=== PATIENT | female | born 1945 | race Caucasian/White ===

== ENCOUNTER 2018-02-04 03:43 | Emergency (ER) | payer SELFPAY ==
[~2018-02-04] VITALS: Ht 157.5 cm; Wt 90.0 kg
[2018-02-04] MEDS ORDERED: ACETAMINOPHEN 325MG TABLET PO STA (05:08)
[2018-02-04] MEDS ORDERED: KETOROLAC 60MG/2ML VIAL IM STA (05:08)
[2018-02-04] MEDS ORDERED: ONDANSETRON 4MG ODT PO STA (05:08)
[2018-02-04 05:10] VITALS: BP 102/49
[2018-02-04 05:32] LABS: BASOPHILS % 0.3 % (0.0-2.0); EOSINOPHILS % 0.2 % (0.0-5.0); HEMATOCRIT. 33.7 % (36.0-48.0); HEMOGLOBIN. 11.5 g/dL (12.0-16.0); LYMPHOCYTES % 5.6 % (20.0-50.0); MEAN CORPUSCULAR HEMOGLOBIN 31.2 pg (28.0-32.0); MEAN CORPUSCULAR VOLUME 91.8 fL (81.0-99.0); MEAN PLATELET VOLUME 9.4 fl (7.4-10.4); MONOCYTES % 9.7 % (2.0-8.0); NEUTROPHILS % 84.2 % (40.0-76.0); PLATELET 134 x1000/uL (130-400); RED BLOOD CELL COUNT 3.67 mill/uL (4.2-5.4); RED CELL DISTRIBUTION WIDTH 14.4 % (11.6-14.6)
[2018-02-04 05:37] LABS: CHLORIDE 106 mEq/L (98-107)
[2018-02-04 05:39] LABS: INR 1.1; PROTHROMBIN TIME 11.2 sec (9.4-11.6)
== END 2018-02-04 05:50 | disposition home or self-care (01) ==
LOC: ER 03:43
DX: J06.9 Acute upper respiratory infection, unspecified (principal); E11.9 Type 2 diabetes mellitus without complications; Z90.49 Acquired absence of other specified parts of digestive tract; Z90.710 Acquired absence of both cervix and uterus
CPT/HCPCS: 36415; 80053; 82962; 85025; 85610; 99284